=== PATIENT | male | born 1980 | race Two or more races ===

== ENCOUNTER 2017-09-18 22:17 | Emergency (ER) | payer OTHER ==
[~2017-09-18] VITALS: Ht 165.1 cm; Wt 72.6 kg
[2017-09-18 23:52] LABS: BASOPHIL % 0.2 % (0-2); PLATELET COUNT 282 x10^3mcL (130-400); RED CELL DISTRIBUTION WIDTH 12.4 % (11.5-14.5)
[2017-09-19 00:08] LABS: CALCIUM 8.7 mg/dL (8.5-10.1); CARBON DIOXIDE 25.3 mmol/L (21-32); CHLORIDE SERUM 104 mmol/L (98-107); CREATININE SERUM 0.9 mg/dL (0.7-1.3); GFR1 > 60 mL/min; GLUCOSE SERUM 114 mg/dL (74-106); POTASSIUM SERUM 3.6 mmol/L (3.5-5.1); SODIUM SERUM 138 mmol/L (136-145)
[2017-09-19 00:12] LABS: ALBUMIN 3.7 g/dL (3.4-5.0); ALKALINE PHOSPHATASE 83 U/L (46-116); ALT/SGPT 29 U/L (16-63); AST/SGOT 11 U/L (15-37); BILIRUBIN TOTAL 0.1 mg/dL (0.20-1.00); TOTAL PROTEIN, SERUM 7.2 g/dL (6.4-8.2)
[2017-09-19 01:32] VITALS: BP 112/74
== END 2017-09-19 01:44 | disposition home or self-care (01) ==
LOC: ED 22:17
PROVIDERS: Specialist
DX: G43.909 Migraine, unspecified, not intractable, without status migrainosus (principal); R06.4 Hyperventilation; R07.9 Chest pain, unspecified; I10 Essential (primary) hypertension
CPT/HCPCS: 83880; J1885; J3010; Q0162